=== PATIENT | female | born 2000 | race Caucasian/White ===

== ENCOUNTER 2023-06-16 21:15 | Emergency (ER) | payer OTHER ==
[~2023-06-16] VITALS: Ht 157.5 cm; Wt 86.2 kg
[2023-06-16 21:24] VITALS: BP 116/73; PULSE 88; RESP 18; TEMP 97.7; O2SAT 98
[2023-06-16 22:07] VITALS: BP 117/80; PULSE 85; RESP 16
[2023-06-16 22:11] VITALS: O2SAT 100
[2023-06-16] MEDS: IBUPROFEN 600 MG TAB PO ONE (22:41)
== END 2023-06-16 22:42 | disposition home or self-care (01) ==
LOC: MED 21:15
DX: R42 Dizziness and giddiness (principal); N92.0 Excessive and frequent menstruation with regular cycle
CPT/HCPCS: 81025; 99282